=== PATIENT | female | born 1995 | race Caucasian/White ===

== ENCOUNTER 2024-11-05 21:12 | Emergency (ER) | payer OTHER ==
[~2024-11-05] VITALS: Ht 162.6 cm; Wt 83.7 kg
[~2024-11-05 21:12] MED LIST: PREN29CH2 PO
--- NOTE | 2024-11-05 21:26 | ECG ---
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
[2024-11-05 21:34] VITALS: BP 100/66; RESP 20; TEMP 99.6; O2SAT 98
[2024-11-05] MEDS ORDERED: ONDANSETRON HCL 4 MG/2 ML VIAL IV ONE (21:45)
[2024-11-05] MEDS ORDERED: SODIUM CHLORIDE 0.9% 1,000 ML IV ONE ×2 (21:45)
--- NOTE | 2024-11-05 21:45 | ED.PDOC ---
History of Present Illness HPI Comments 29-year-old female, with a history of anxiety, BPD, and PTSD, presents with chief complaint of his body aches, headache whenever coughing, generalized weakness, increased urine frequency, and dark urine production. Endorsement of 4 day history of symptoms. Patient reports on falling a couple times secondary to weakness. Denies any injuries sustained. Denies any further acute symptoms. REVIEW OF SYSTEMS: General: No fever, no chills, or fatigue HEENT: No sore throat, no earache, no congestion, no neck pain. Cardiac: No chest pain. No palpitations. Lungs: No shortness of breath. Cough. GI: No nausea, no vomiting, no diarrhea, no constipation, no abdominal pain : Frequency, dark urine Musculoskeletal: Generalized body aches,, no joint swelling, no extremity edema. Skin: No rash, no itching. Neuro: Generalized weakness, headache, no dizziness PHYSICAL EXAM: General: Awake, alert and oriented. No acute distress. Skin: Skin in warm, dry and intact. Appropriate color for ethnicity. HEENT: The head is normocephalic and atraumatic. Conjunctivae are clear without exudates or hemorrhage. Sclera is non-icteric. EOM are intact. No signs of nystagmus. Eyelids are normal in appearance without swelling or lesions. Oral mucosa is pink and moist Neck: The neck is supple with normal range of motion. No JVD. Cardiac: Heart rate tachycardic and rhythm are normal. No murmurs, gallops, or rubs are auscultated. Respiratory: No signs of respiratory distress. Lung sounds are clear in all lobes bilaterally without rales, rhonchi, or wheezes. Abdominal: Generalized abdominal tenderness. No CVA tenderness. Abdomen is soft, without distention, guarding or rigidity. Bowel sounds are present and normoactive in all four quadrants. Extremities: Upper and lower extremities are atraumatic in appearance without deformity or edema. Neurological: The patient is awake, alert and oriented to person, place, and time with normal speech. Speech is clear. There is no facial asymmetry. Psychiatric: Appropriate mood and affect. Good judgement and insight. Chief Complaint: Chest Pain Time Seen by MD: 21:30 Primary Care Provider: Denies Allergies: Coded Allergies: Vancomycin (Verified Adverse Reaction, Intermediate, 02/10/13) ITCHYNESS, REDDENED SKIN, MILD SOB. 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 Was a procedure done?: No EKG EKG : Pulse Rate (adult): 128 [place]: Normal Cardiac Rhythm: ST Block: None Hypertrophy: None ST: Normal Differential Dx Considerations may include: Differential diagnoses considered include but are not limited to sepsis, CVA, ACS, PE, stroke, ICH, adrenal insufficiency, viral syndrome, thyroid storm, myxedema coma , DKA, HHS, hypoglycemia, anemia, GI bleeding, renal failure, dehydration, hepatic failure, electrolyte imbalance, carbon monoxide poisoning, malignancy, UTI, other. X-Ray, Labs, Meds, VS Vital Signs Date Time Temp Pulse Resp B/P (MAP) Pulse Ox O2 Delivery O2 Flow Rate FiO2 11/06/24 00:11 128 11/05/24 22:54 124 11/05/24 21:34 99.6 138 20 100/66 98 99.6 11/05/24 21:19 128 Lab Test 11/05/24 23:00 11/05/24 21:33 Range/Units White Blood Count 23.3 H 4.4-10.8 10^3/uL Red Blood Count 4.99 4.0-5.20 10^6/uL Hemoglobin 14.0 12.2-16.2 g/dL Hematocrit 40.3 36.0-46.0 % Mean Corpuscular Volume 80.7 80.0-100.0 fL Mean Corpuscular Hemoglobin 28.1 28.0-32.0 pg Mean Corpuscular Hemoglobin Concent 34.8 32.0-36.0 g/dL Red Cell Distribution Width 14.0 11.8-14.3 % Platelet Count 219 140-450 10^3/uL Mean Platelet Volume 8.7 6.9-10.8 fL Neutrophils (%) (Auto) 85.9 H 37.0-80.0 % Lymphocytes (%) (Auto) 5.7 L 10.0-50.0 % Monocytes (%) (Auto) 8.0 0.0-12.0 % Eosinophils (%) (Auto) 0.0 0.0-7.0 % Basophils (%) (Auto) 0.4 0.0-2.0 % Neutrophils # (Auto) 20.0 H 1.6-8.6 10 ^3/uL Lymphocytes # (Auto) 1.3 0.4-5.4 10 ^3/uL Monocytes # (Auto) 1.9 H 0-1.3 10 ^3/uL Eosinophils # (Auto) 0 0-0.8 10 ^3/uL Basophils # (Auto) 0.1 0-0.2 10 ^3/uL Nucleated Red Blood Cells 0.1 % Sodium Level 127 L 136-145 mmol/L Potassium Level 3.6 3.5-5.1 mmol/L Chloride Level 94 L 98-107 mmol/L Carbon Dioxide Level 22 20-31 mmol/L Anion Gap 11 5-15 Blood Urea Nitrogen 11 9-23 mg/dL Creatinine 1.37 H 0.550-1.02 mg/dL Glomerular Filtration Rate Calc 53 >90 mL/min BUN/Creatinine Ratio 8.0 L 10.0-20.0 Serum Glucose 111 H 74-106 mg/dL Lactic Acid Level 2.4 *H 0.4-2.0 mmol/L Calcium Level 8.9 8.7-10.4 mg/dL Total Bilirubin 1.5 H 0.2-1.0 mg/dL Aspartate Amino Transferase (AST) 17 13-40 U/L Alanine Aminotransferase (ALT) 36 7-40 U/L Alkaline Phosphatase 144 H 46-116 U/L Troponin I High Sensitivity < 3 L </=34 ng/L Total Protein 7.2 5.7-8.2 g/dL Albumin 3.9 3.2-4.8 g/dL Urine Color Light-orange Yellow Urine Clarity Ex.turbid Clear Urine pH 6.0 5.0-9.0 Urine Specific [place] 1.020 1.001-1.035 Urine Protein 2+ H Negative Urine Ketones Negative Negative Urine Blood 2+ H Negative /uL Urine Nitrite 2+ H Negative Urine Bilirubin Negative Negative Urine Urobilinogen 3 H Negative mg/dL Urine Leukocyte Esterase 2+ Negative /uL Urine RBC 33 0 - 4 /hpf Urine WBC Clumps Present None Seen /hpf Urine Microscopic WBC 637 H 0-5 /HPF Urine Squamous Epithelial Cells Few <5 /hpf Urine Bacteria Mod H None Seen /hpf Urine Mucus Few None Seen Urine Glucose Normal Normal mg/dL Urine Test Negative Negative Time of 1ST Reevaluation: 22:00 Reevaluation 1ST: Unchanged Patient Education/Counseling: Treatment, Need For Follow Up Family Education/Counseling: No Family Present SEPSIS Sepsis Screen Date sepsis recognized/suspect: Nov 05, 2024 Time Sepsis recognized/suspect: 2136 Recent Procedure: No On Antibiotic Therapy: No Respiratory Rate >20: No Heart Rate >90: No Temp<36 C (96.8 F) or >38.3 C: No SBP <90 or MAP <65 mmHG: No New Acute Mental Status Change: No Is the patient on CPAP, BIPAP,: No Physician Orders Electrocardigram (11/05/24 22:25) Electrocardigram (11/06/24 00:25) Sodium Chloride 0.9% (11/05/24 21:45) Vital Signs Q1HR (11/05/24 21:36) Saline Lock (11/05/24 21:36) Bartenders (11/05/24 ) Rectal/Core Temps Only (11/05/24 21:36) Notify Md If Abnormal Vs (11/05/24 21:36) Blood Culture (11/05/24 21:36) Vital Signs Date Time Temp Pulse Resp B/P (MAP) Pulse Ox O2 Delivery O2 Flow Rate FiO2 11/06/24 00:11 128 11/05/24 22:54 124 11/05/24 21:34 99.6 138 20 100/66 98 99.6 11/05/24 21:19 128 Laboratory Tests Test 11/05/24 23:00 Lactic Acid Level 2.4 mmol/L (0.4-2.0) *H White Blood Count 23.3 10^3/uL (4.4-10.8) H Departure 1 Departure Time of Disposition: 01:43 Impression: Primary Impression: Urinary tract infection Disposition: LEFT AWOL/ELOPED Condition: Guarded Comments MDM: Patient was seen and evaluated in the emergency department She eloped prior to completing treatment Attempted to reach patient by phone to update with her results and recommend return to the emergency department. Phone number listed on chart not in service Extensive evaluation was performed in attempt to identify or rule out: (See differential diagnosis section) The following tests were ordered, and results were reviewed by me and discussed with patient: (See diagnostic results section) The following test were independently interpreted by me: N/A I reviewed and agreed with the following test results read by other providers: Chest x-ray I reviewed the following notes from the pt's past medical encounters: N/A Additional information was gathered from interviewing the following independent historians: N/A Discussion of management or test interpretation with external physician/other qualified health care administrative tech: N/A An acute or chronic illness that poses a threat to life or bodily function: Urinary tract infection Decision regarding hospitalization or escalation of hospital level of care: Risk and benefits of admission for further treatment of patient's condition was considered. Due to patient's current clinical condition, high risk of decline and poor outcome if discharged and need for further inpatient management and monitoring, patient will be admitted to the hospital. Critical Care Note Critical Care Time?: No Stability Stability form required: No Heart Score Heart Score: Heart Score Response (Comments) Value History N/A 0 EKG N/A 0 Age N/A 0 Risk Factors N/A 0 Troponin N/A 0 Total 0 I personally scribed for YURY MORRIS MD ([email or web address]) on 11/05/24 at 21:45. Electronically submitted by Micah Shaffer ([email or web address]). I personally scribed for YURY MORRIS MD ([email or web address]) on 11/06/24 at 00:11. E lectronically submitted by Micah Shaffer ([email or web address]). I personally scribed for YURY MORRIS MD ([email or web address]) on 11/06/24 at 01:17. Electronically submitted by Micah Shaffer ([email or web address]). YURY MORRIS MD Nov 05, 2024 21:45
[2024-11-05 23:31] LABS: Hematocrit 40.3 % (36.0-46.0); Hemoglobin 14.0 g/dL (12.2-16.2); Mean Corpuscular Hemoglobin 28.1 pg (28.0-32.0); Mean Corpuscular Volume 80.7 fL (80.0-100.0); Nucleated Red Blood Cells % 0.1 %
[2024-11-05 23:56] LABS: Urine Protein, UAD 2+ (Negative); Urine WBC Clumps PRESENT /hpf (None Seen)
[2024-11-06 00:03] LABS: Alanine Aminotransferase 36 U/L (7-40); Albumin 3.9 g/dL (3.2-4.8); Alkaline Phosphatase 144 U/L (46-116); Anion Gap 11 (5-15); BUN/Creatinine Ratio 8.0 (10.0-20.0); Bilirubin, Total 1.5 mg/dL (0.2-1.0); Blood Urea Nitrogen 11 mg/dL (9-23); Calcium 8.9 mg/dL (8.7-10.4); Carbon Dioxide 22 mmol/L (20-31); Chloride 94 mmol/L (98-107); Glucose 111 mg/dL (74-106); Potassium 3.6 mmol/L (3.5-5.1); Sodium 127 mmol/L (136-145); Total Protein 7.2 g/dL (5.7-8.2)
[2024-11-06 00:11] VITALS: PULSE 128
[2024-11-06 00:12] LABS: Lactic Acid w/Reflex 2.4 mmol/L (0.4-2.0)
--- NOTE | 2024-11-06 08:21 | ECG ---
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
--- NOTE | 2024-11-07 06:35 | ECG ---
[facility] Test Date: 2024-11-06 Test Time: 19:52:28 Pat Name: TRISTA LO Department: Room: Gender: F Sap Trainer: ANDREA : 1995 Requested By: EMERGENCY EMERGENCY Order Number: [id number] Reading MD: Jesús Vo Measurements Intervals [place] Rate: 98 P: 18 WV: 153 QRS: 0 QRSD: 104 T: 48 QT: 349 QTc: 446 Interpretive Statements Sinus rhythm Electronically Signed On 11-08-2024 9:56:57 PDT by Jesús Vo Please click the below link to view image of tracing.
== END 2024-11-06 00:46 | disposition left against medical advice (07) ==
LOC: ER 21:18
DX: N39.0 Urinary tract infection, site not specified (principal); F17.210 Nicotine dependence, cigarettes, uncomplicated; Z90.49 Acquired absence of other specified parts of digestive tract; Z79.899 Other long term (current) drug therapy; Z88.1 Allergy status to other antibiotic agents
CPT/HCPCS: 36415; 80053; 81001; 81025; 83605; 84484; 85025; 87040; 87077; 87186; 93005

== ENCOUNTER 2024-11-06 15:21 | Inpatient (IN) | payer SELFPAY ==
[~2024-11-06] VITALS: Ht 162.6 cm; Wt 89.0 kg
--- NOTE | 2024-11-06 16:39 | DVH ---
CLINICAL HISTORY: Bilateral flank pain TECHNIQUE: CT of the abdomen and pelvis was performed without IV contrast. This exam was performed ac cording to our departmental dose optimization program. Up-to-date CT equipment and radiation dose red uction techniques are utilized as appropriate. CTDI 11.7 DLP 613 COMPARISON: None FINDINGS: Abdomen/Pelvis: The spleen, pancreas, adrenal glands, and uterus appear grossly unremarkable. The gallbladder is absent. There is diffuse hepatic steatosis. There is extensive right perinephric inflammation. There is minimal left perinephric inflammation. No stone or hydronephrosis seen. The bladder is not well distended and therefore not well evaluated. The uterus is absent. The abdominal aorta is normal in course and caliber. There are no significant atherosclerotic calcifi cations. There is no free intraperitoneal air or fluid. There is no enlarged abdominal pelvic lymph node. There is no bowel wall thickening or dilatation. The appendix is not seen with certainty. There is no focal inflammatory process and suspected location. Other: The imaged lower thorax is unremarkable. No acute osseous abnormality is evident. There is grade 1 L5-S1 spondylolysis. Impression: Extensive right and minimal left perinephric inflammation with no stone or hydroureteronephrosis. Ple ase correlate with urine analysis and laboratory values for pyonephritis. Other possibilities are not excluded on a noncontrast CT exam. Diffuse hepatic steatosis. Cholecystectomy.
[2024-11-06 16:52] LABS: Urine Budding Yeast FEW /hpf (None Seen); Urine Protein, UAD 2+ (Negative); Urine WBC Clumps PRESENT /hpf (None Seen)
--- NOTE | 2024-11-06 17:06 | ED.PDOC ---
General HPI Comments 29y F who presents to the ED for chief complaint of L left greater than right- sided flank pain. Pt was seen here yesterday and for same complaint and had blood work and UA. Pt was noted be have UTI and antibiotics were ordered but pt states to due long wait time and her history of anxiety, she left prior to treatment. Pt states she now came back to the ED due to severe 10/ 10 bilateral sided flank pain and generalized weakness, nausea, vomiting, dysuria and fever. Pt in the ED, noted to have temp of 100.3 with otherwise stable vitals including heart rate 84, rr 16, BP of 103/73 and 02 sat of 96% on room air. Pt otherwise denies any other symptoms at this time. Of note, patient had 1 episode of brief loss of consciousness while sitting in the phlebotomy chair having her blood drawn. She immediately regained consciousness spontaneously and was at her normal neurologic baseline. She states she became very anxious and may have pas sed out. Chief Complaint: Flank Pain Time Seen by MD: 17:05 Primary Care Provider: Denies Reviewed notes: Medications, Allergies Allergies: Coded Allergies: Naproxen (Verified Allergy, Unknown, 11/06/24) Sumatriptan (Verified Allergy, Unknown, 11/06/24) Vancomycin (Verified Adverse Reaction, Intermediate, 02/10/13) ITCHYNESS, REDDENED SKIN, MILD SOB. 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 Dry mucous membranes.) Neck: Full Range of Motion, Normal Inspection Respiratory: Lungs Clear, No Accessory Muscle Use, No Respiratory Distress, Normal Breath Sounds Cardiovascular: No Edema, No JVD, Tachycardia Breast Exam: Deferred Gastrointestinal: Soft, Tenderness (Bilateral flank and CVA tenderness) Genitalia: Deferred Pelvic: Deferred Rectal: Deferred Extremities: Normal inspection, Normal range of motion, Non-tender, No pedal edema Neurologic: Alert (Oriented x4), Normal Affect, Other (Anxious, ambulatory) Cerebellar Function: NOT DONE Reflexes: NOT DONE Skin: NOT DONE Lymphatic: NOT DONE Was a procedure done? Was a procedure done?: No Differential Diagnosis Kidney stone (Female): Musculoskeletal pain, Pyelonephritis, Renal failure, Strain, Urinary obstruction, Urolithiasis, Other (Dehydration, electrolyte imbalance,) Urinary Problem (Female): Pyelonephritis, Urinary retention, UTI X-Ray, Labs, Meds, VS Vital Signs Date Time Temp Pulse Resp B/P (MAP) Pulse Ox O2 Delivery O2 Flow Rate FiO2 11/06/24 20:00 97 11/06/24 19:30 104 16 99/61 11/06/24 18:59 115 12 97/62 11/06/24 18:51 100.7 113 15 93/56 (68) 95 100.7 11/06/24 18:51 113 15 95 Room Air* 0 21 11/06/24 18:31 101.3 11/06/24 15:23 100.3 84 16 103/73 96 100.3 Lab Test 11/06/24 16:51 11/06/24 16:39 Range/Units White Blood Count 18.3 H 4.4-10.8 10^3/uL Red Blood Count 4.95 4.0-5.20 10^6/uL Hemoglobin 13.7 12.2-16.2 g/dL Hematocrit 41.1 36.0-46.0 % Mean Corpuscular Volume 83.1 80.0-100.0 fL Mean Corpuscular Hemoglobin 27.7 L 28.0-32.0 pg Mean Corpuscular Hemoglobin Concent 33.4 32.0-36.0 g/dL Red Cell Distribution Width 14.6 H 11.8-14.3 % Platelet Count 391 140-450 10^3/uL Mean Platelet Volume 8.9 6.9-10.8 fL Neutrophils (%) (Auto) 81.5 H 37.0-80.0 % Lymphocytes (%) (Auto) 7.1 L 10.0-50.0 % Monocytes (%) (Auto) 11.1 0.0-12.0 % Eosinophils (%) (Auto) 0.1 0.0-7.0 % Basophils (%) (Auto) 0.2 0.0-2.0 % Neutrophils # (Auto) 14.9 H 1.6-8.6 10 ^3/uL Lymphocytes # (Auto) 1.3 0.4-5.4 10 ^3/uL Monocytes # (Auto) 2.0 H 0-1.3 10 ^3/uL Eosinophils # (Auto) 0 0-0.8 10 ^3/uL Basophils # (Auto) 0 0-0.2 10 ^3/uL Nucleated Red Blood Cells 0.1 % Sodium Level 126 L 136-145 mmol/L Potassium Level 3.3 L 3.5-5.1 mmol/L Chloride Level 94 L 98-107 mmol/L Carbon Dioxide Level 21 20-31 mmol/L Anion Gap 11 5-15 Blood Urea Nitrogen 11 9-23 mg/dL Creatinine 1.36 H 0.550-1.02 mg/dL Glomerular Filtration Rate Calc 53 >90 mL/min BUN/Creatinine Ratio 8.1 L 10.0-20.0 Serum Glucose 112 H 74-106 mg/dL Lactic Acid Level 1.6 0.4-2.0 mmol/L Calcium Level 8.6 L 8.7-10.4 mg/dL Total Bilirubin 1.1 H 0.2-1.0 mg/dL Aspartate Amino Transferase (AST) 17 13-40 U/L Alanine Aminotransferase (ALT) 29 7-40 U/L Alkaline Phosphatase 127 H 46-116 U/L Total Protein 7.1 5.7-8.2 g/dL Albumin 3.9 3.2-4.8 g/dL Urine Color Light-orange Yellow Urine Clarity Ex.turbid Clear Urine pH 6.0 5.0-9.0 Urine Specific [place] 1.019 1.001-1.035 Urine Protein 2+ H Negative Urine Ketones Negative Negative Urine Blood 2+ H Negative /uL Urine Nitrite 1+ H Negative Urine Bilirubin Negative Negative Urine Urobilinogen 2 H Negative mg/dL Urine Leukocyte Esterase 3+ Negative /uL Urine RBC 13 0 - 4 /hpf Urine WBC Clumps Present None Seen /hpf Urine Microscopic WBC 807 H 0-5 /HPF Urine Squamous Epithelial Cells Few <5 /hpf Urine Bacteria Few H None Seen /hpf Urine Yeast (Budding) Few None Seen /hpf Urine Glucose Normal Normal mg/dL Current Medications Medications (Trade) Dose Ordered Sig/Shannon Route Start Time Stop Time Status Last Admin Acetaminophen (Tylenol Tablet) 650 mg ONCE ONCE PO 11/06/24 15:45 11/06/24 15:46 DC 11/06/24 18:31 Sodium Chloride 1,650 ml @ 1,650 mls/hr ONCE ONCE IV 11/06/24 15:45 11/06/24 16:44 DC 11/06/24 18:54 Ceftriaxone Sodium/Dextrose 50 ml @ 50 mls/hr ONCE ONCE IV 11/06/24 15:45 11/06/24 16:44 DC 11/06/24 18:58 Morphine Sulfate 4 mg ONCE ONCE IV 11/06/24 15:45 11/06/24 15:46 DC 11/06/24 18:59 Ondansetron HCl (Zofran) 4 mg ONCE ONCE IV 11/06/24 15:45 11/06/24 15:46 DC 11/06/24 18:59 [place] [id number] Ph: [phone] DIAGNOSTIC IMAGING Diagnostic Imaging Report : [id number] Signed PATIENT: TRISTA LO ACCT: [id number] UNIT: [id number] : 1995 LOC: ER ROOM / BED: / AGE / SEX: 29 / F ADM STATUS: REG ER SERVICE 1541 ORDERING PHYSICIAN: BELA CROCKER MD PROCEDURE(s): ABPL - CT AB PEL WO CON-NO ORAL OR IV REASON: Bilateral flank pain ORDER NUMBER(s): [id number], ACCESSION NUMBER(s): [id number] CLINICAL HISTORY: Bilateral flank pain TECHNIQUE: CT of the abdomen and pelvis was performed without IV contrast. This exam was performed according to our departmental dose optimization program. Up-to-date CT equipment and radiation dose reduction techniques are utilized as appropriate. CTDI 11.7 DLP 613 COMPARISON: None FINDINGS: Abdomen/Pelvis: The spleen, pancreas, adrenal glands, and uterus appear grossly unremarkable. The gallbladder is absent. There is diffuse hepatic steatosis. There is extensive right perinephric inflammation. There is minimal left per inephric inflammation. No stone or hydronephrosis seen. The bladder is not well distended and therefore not well evaluated. The uterus is absent. The abdominal aorta is normal in course and caliber. There are no significant atherosclerotic calcifications. There is no free intraperitoneal air or fluid. There is no enlarged abdominal pelvic lymph node. There is no bowel wall thickening or dilatation. The appendix is not seen with certainty. There is no focal inflammatory process and suspected location. Other: The imaged lower thorax is unremarkable. No acute osseous abnormality is evident. There is grade 1 L5-S1 spondylolysis. Impression: Extensive right and minimal left perinephric inflammation with no stone or hydroureteronephrosis. Please correlate with urine analysis and laboratory values for pyonephritis. Other possibilities are not excluded on a noncontrast CT exam. Diffuse hepatic steatosis. Cholecystectomy. ATED BY: DWIGHT TOLEDO MD DICTATED DATE/TIME: 11/06/24 1637 SIGNED BY: DWIGHT TOLEDO MD SIGNED DATE/TIME: 11/06/24 1637 CC: X-Ray, Labs, Meds, VS Comment 29-year-old female with a history of anxiety, bipolar disorder, PTSD and kidney stones complaining of persistent bilateral flank pain. Patient left prior to treatment yesterday after being diagnosed with a UTI. Vitals remarkable for temperature 101.3, heart rate 113 Exam remarkable for bilateral CVA tenderness CT abdomen and pelvis shows bilateral perinephric stranding suspicious for pyelonephritis CBC remarkable for WBC 18.3, metabolic panel remarkable for sodium 126, potassium 3.3, chloride 94, creatinine 1.36, lactate 1.6, UA abnormal consistent with UTI Patient treated with the following in the ED: 30 cc/kilogram normal saline IV bolus, Rocephin 2 g IV, morphine 4 mg IV, Zofran 4 mg IV, Tylenol 650 mg p.o. On re-evaluation, patient states pain has improved. Vitals were stable. She is afebrile. Plan is to admit the patient for IV antibiotics, electrolyte correction and nephrology consultation. Time of 1ST Reevaluation: 20:34 Reevaluation 1ST: Improved Patient Education/Counseling: Diagnosis, Treatment Family Education/Counseling: No Family Present SEPSIS Sepsis Screen Date sepsis recognized/suspect: Nov 06, 2024 Time Sepsis recognized/suspect: 1523 Recent Procedure: No On Antibiotic Therapy: No Respiratory Rate >20: No Heart Rate >90: No Temp<36 C (96.8 F) or >38.3 C: No SBP <90 or MAP <65 mmHG: No New Acute Mental Status Change: No Is the patient on CPAP, BIPAP,: No Physician Orders Blood Culture (11/06/24 15:41) Ct Ab Pel Wo Con-No Oral Or Iv (11/06/24 15:41) Vital Signs Date Time Temp Pulse Resp B/P (MAP) Pulse Ox O2 Delivery O2 Flow Rate FiO2 11/06/24 20:00 97 11/06/24 19:30 104 16 99/61 11/06/24 18:59 115 12 97/62 11/06/24 18:51 100.7 113 15 93/56 (68) 95 100.7 11/06/24 18:51 113 15 95 Room Air* 0 21 11/06/24 18:31 101.3 11/06/24 15:23 100.3 84 16 103/73 96 100.3 Laboratory Tests Test 11/06/24 16:51 Lactic Acid Level 1.6 mmol/L (0.4-2.0) White Blood Count 18.3 10^3/uL (4.4-10.8) H Medications Medications Dose Ordered Sig/Shannon Route Start Time Stop Time Status Last Admin Dose Admin Acetaminophen 650 mg ONCE ONCE PO 11/06/24 15:45 11/06/24 15:46 DC 11/06/24 18:31 Ceftriaxone Sodium/Dextrose 50 ml @ 50 mls/hr ONCE ONCE IV 11/06/24 15:45 11/06/24 16:44 DC 11/06/24 18:58 Morphine Sulfate 4 mg ONCE ONCE IV 11/06/24 15:45 11/06/24 15:46 DC 11/06/24 18:59 Ondansetron HCl 4 mg ONCE ONCE IV 11/06/24 15:45 11/06/24 15:46 DC 11/06/24 18:59 Sodium Chloride 1,650 ml @ 1,650 mls/hr ONCE ONCE IV 11/06/24 15:45 11/06/24 16:44 DC 11/06/24 18:54 Departure 1 Departure Time of Disposition: 20:34 Impression: Primary Impression: Pyelonephritis Additional Impressions: Electrolyte imbalance Acute kidney injury Disposition: 09 ADMITTED INPATIENT Admit to: Med Surg Condition: Guarded Critical Care Note Critical Care Time?: No Stability Stability form required: No Heart Score Heart Score: Heart Score Response (Comments) Value History N/A 0 EKG N/A 0 Age N/A 0 Risk Factors N/A 0 Troponin N/A 0 Total 0 I personally scribed for BELA CROCKER MD ([email or web address]) on 11/06/24 at 17:06. Electronically submitted by Kiel Silva ([facility]). BELA CROCKER MD Nov 06, 2024 17:06
[2024-11-06 17:15] LABS: Hematocrit 41.1 % (36.0-46.0); Hemoglobin 13.7 g/dL (12.2-16.2); Mean Corpuscular Hemoglobin 27.7 pg (28.0-32.0); Mean Corpuscular Volume 83.1 fL (80.0-100.0); Nucleated Red Blood Cells % 0.1 %
[2024-11-06 17:37] LABS: Alanine Aminotransferase 29 U/L (7-40); Albumin 3.9 g/dL (3.2-4.8); Anion Gap 11 (5-15); BUN/Creatinine Ratio 8.1 (10.0-20.0); Blood Urea Nitrogen 11 mg/dL (9-23); Carbon Dioxide 21 mmol/L (20-31); Total Protein 7.1 g/dL (5.7-8.2)
[2024-11-06 17:38] LABS: Bilirubin, Total 1.1 mg/dL (0.2-1.0)
[2024-11-06 17:39] LABS: Alkaline Phosphatase 127 U/L (46-116); Calcium 8.6 mg/dL (8.7-10.4); Chloride 94 mmol/L (98-107); Glucose 112 mg/dL (74-106); Potassium 3.3 mmol/L (3.5-5.1); Sodium 126 mmol/L (136-145)
[2024-11-06] MEDS: ACETAMINOPHEN 325 MG TAB PO ONE (18:31)
[2024-11-06 18:51] VITALS: PULSE 113; RESP 15; O2SAT 95
[2024-11-06] MEDS: SODIUM CHLORIDE 0.9% 1,650 ML IV ONE (18:54)
[2024-11-06] MEDS: ONDANSETRON HCL 4 MG/2 ML VIAL IV ONE (18:59)
[2024-11-06] MEDS: MORPHINE SULFATE 4 MG/ML SYR/VIAL IV ONE (18:59)
[2024-11-06 21:39] VITALS: PULSE 111; RESP 16; O2SAT 96
--- NOTE | 2024-11-06 22:12 | DVHHPRES ---
History of Present Illness Resident Creating Document: TIO SAMPSON RESIDENT History of Present Illness 29-year-old female with past medical history of kidney stones, depression and past surgical history of appendectomy presented with complaints of flank pain left greater than right. Pt was seen here yesterday and for same complaint and had blood work and UA. Pt was noted be have UTI and antibiotics were ordered but pt states to due long wait time and her history of anxiety, she left prior to treatment. Pt states she now came back to the ED due to severe 10/ 10 bilateral sided flank pain and generalized weakness, nausea, vomiting, dysuria and fever. Patient seen and examined at bedside. Mentioned complaints of back pain, still has fever Past medical history Kidney stones Depression Past surgical history Appendectomy Family History Family History: No family hx of DM, No family hx of Heart jojo Social History Smoker: Cigarettes, Other Alcohol: Occasionally Drugs: Marijuana, Other Lives In: Home Review of Systems Review of Systems As described in the HPI Allergies: Coded Allergies: Naproxen (Verified Allergy, Unknown, 11/06/24) Sumatriptan (Verified Allergy, Unknown, 11/06/24) Vancomycin (Verified Adverse Reaction, Intermediate, 02/10/13) ITCHYNESS, REDDENED SKIN, MILD SOB. Exam Vital Signs Vital Signs Date Time Temp Pulse Resp B/P (MAP) Pulse Ox O2 Delivery O2 Flow Rate FiO2 11/06/24 21:39 111 16 96 Room Air* 0 21 11/06/24 21:00 98.3 106/62 (77) 98.3 Exam Examination General Appearance: Alert, Oriented X3, Cooperative, No acute distress HEENT: EOMI Respiratory: Clear to auscultation, Normal air movement Cardiovascular: Regular rate, Normal S1, Normal S2 Abdominal: Soft, Tenderness (Bilateral flank and CVA tenderness), Normal bowel sounds Extremities: No cyanosis, No edema, Normal pulses, No tenderness/swelling Skin: No rashes, No breakdown Neuro: Normal speech and tone Labs/Xrays Labs Test 11/06/24 16:51 11/06/24 16:39 Range/Units White Blood Count 18.3 H 4.4-10.8 10^3/uL Red Blood Count 4.95 4.0-5.20 10^6/uL Hemoglobin 13.7 12.2-16.2 g/dL Hematocrit 41.1 36.0-46.0 % Mean Corpuscular Volume 83.1 80.0-100.0 fL Mean Corpuscular Hemoglobin 27.7 L 28.0-32.0 pg Mean Corpuscular Hemoglobin Concent 33.4 32.0-36.0 g/dL Red Cell Distribution Width 14.6 H 11.8-14.3 % Platelet Count 391 140-450 10^3/uL Mean Platelet Volume 8.9 6.9-10.8 fL Neutrophils (%) (Auto) 81.5 H 37.0-80.0 % Lymphocytes (%) (Auto) 7.1 L 10.0-50.0 % Monocytes (%) (Auto) 11.1 0.0-12.0 % Eosinophils (%) (Auto) 0.1 0.0-7.0 % Basophils (%) (Auto) 0.2 0.0-2.0 % Neutrophils # (Auto) 14.9 H 1.6-8.6 10 ^3/uL Lymphocytes # (Auto) 1.3 0.4-5.4 10 ^3/uL Monocytes # (Auto) 2.0 H 0-1.3 10 ^3/uL Eosinophils # (Auto) 0 0-0.8 10 ^3/uL Basophils # (Auto) 0 0-0.2 10 ^3/uL Nucleated Red Blood Cells 0.1 % Sodium Level 126 L 136-145 mmol/L Potassium Level 3.3 L 3.5-5.1 mmol/L Chloride Level 94 L 98-107 mmol/L Carbon Dioxide Level 21 20-31 mmol/L Anion Gap 11 5-15 Blood Urea Nitrogen 11 9-23 mg/dL Creatinine 1.36 H 0.550-1.02 mg/dL Glomerular Filtration Rate Calc 53 >90 mL/min BUN/Creatinine Ratio 8.1 L 10.0-20.0 Serum Glucose 112 H 74-106 mg/dL Lactic Acid Level 1.6 0.4-2.0 mmol/L Calcium Level 8.6 L 8.7-10.4 mg/dL Total Bilirubin 1.1 H 0.2-1.0 mg/dL Aspartate Amino Transferase (AST) 17 13-40 U/L Alanine Aminotransferase (ALT) 29 7-40 U/L Alkaline Phosphatase 127 H 46-116 U/L Total Protein 7.1 5.7-8.2 g/dL Albumin 3.9 3.2-4.8 g/dL Urine Color Light-orange Yellow Urine Clarity Ex.turbid Clear Urine pH 6.0 5.0-9.0 Urine Specific [place] 1.019 1.001-1.035 Urine Protein 2+ H Negative Urine Ketones Negative Negative Urine Blood 2+ H Negative /uL Urine Nitrite 1+ H Negative Urine Bilirubin Negative Negative Urine Urobilinogen 2 H Negative mg/dL Urine Leukocyte Esterase 3+ Negative /uL Urine RBC 13 0 - 4 /hpf Urine WBC Clumps Present None Seen /hpf Urine Microscopic WBC 807 H 0-5 /HPF Urine Squamous Epithelial Cells Few <5 /hpf Urine Bacteria Few H None Seen /hpf Urine Yeast (Budding) Few None Seen /hpf Urine Glucose Normal Normal mg/dL SEPSIS Sepsis Screen Date sepsis recognized/suspect: Nov 06, 2024 Time Sepsis recognized/suspect: 1850 Recent Procedure: No On Antibiotic Therapy: No Respiratory Rate >20: No Heart Rate >90: Yes Temp<36 C (96.8 F) or >38.3 C: No SBP <90 or MAP <65 mmHG: No New Acute Mental Status Change: No Is the patient on CPAP, BIPAP,: No Physician Orders Blood Culture (11/06/24 15:41) Ct Ab Pel Wo Con-No Oral Or Iv (11/06/24:41) Admit (11/06/24 22:08) Oxygen By Nasal Cannula (11/06/24 22:08) Stat Ekg For Chest Pain (11/06/24 22:08) Notify Md Of Changes From Base (11/06/24 22:08) Agile Scrum Coach For 24 Hours (11/06/24 22:08) Emergency Dysrhythmia Protocol (11/06/24 22:08) Rhythm Strips Once Every Shift (11/06/24 22:08) NS (11/06/24 22:15) Urine Bacterial Culture (11/06/24 22:08) Blood Culture (11/06/24 22:08) Lactic Acid W/ Reflex Order (11/06/24 22:08) Mrsa Screen (11/06/24 22:08) Zosyn Extended Infusion (11/07/24 00:00) Zosyn Extended Infusion (11/07/24 06:00) Potassium Chl Luis Kcl (11/06/24 22:15) Vital Signs Date Time Temp Pulse Resp B/P (MAP) Pulse Ox O2 Delivery O2 Flow Rate FiO2 11/06/24 21:39 111 16 96 Room Air* 0 21 11/06/24 21:00 98.3 91 22 106/62 (77) 94 98.3 11/06/24 20:00 97 11/06/24 19:30 104 16 99/61 11/06/24 18:59 115 12 97/62 11/06/24 18:51 100.7 113 15 93/56 (68) 95 100.7 11/06/24 18:51 113 15 95 Room Air* 0 21 11/06/24 18:31 101.3 11/06/24 15:23 100.3 84 16 103/73 96 100.3 Laboratory Tests Test 11/06/24 16:51 Lactic Acid Level 1.6 mmol/L (0.4-2.0) White Blood Count 18.3 10^3/uL (4.4-10.8) H Medications Medications Dose Ordered Sig/Shannon Route Start Time Stop Time Status Last Admin Dose Admin Acetaminophen 650 mg ONCE ONCE PO 11/06/24 15:45 11/06/24 15:46 DC 11/06/24 18:31 650 MG Ceftriaxone Sodium/Dextrose 50 ml @ 50 mls/hr ONCE ONCE IV 11/06/24 15:45 11/06/24 16:44 DC 11/06/24 18:58 50 MLS/HR Morphine Sulfate 4 mg ONCE ONCE IV 11/06/24 15:45 11/06/24 15:46 DC 11/06/24 18:59 4 MG Ondansetron HCl 4 mg ONCE ONCE IV 11/06/24 15:45 11/06/24 15:46 DC 11/06/24 18:59 4 MG Sodium Chloride 1,650 ml @ 1,650 mls/hr ONCE ONCE IV 11/06/24 15:45 11/06/24 16:44 DC 11/06/24 18:54 1,650 MLS/HR Assessment/Plan Assessment/Plan Assessment/plan # sepsis due to pyelonephritis IV fluid Antibiotics Blood culture Lactic acid # pyelonephritis IV fluid Antibiotics Blood culture Lactic acid CT shows Extensive right and minimal left perinephric inflammation with no stone or hydroureteronephrosis. Please correlate with urine analysis and laboratory values for pyonephritis. Other possibilities are not excluded on a noncontrast CT exam. # PEMA due to VMN IV fluids Monitor #Diffuse hepatic steatosis Seen on CT Monitor with LFTs #hypokalemia -Oral potassium effervescent -Monitor BMP # hyponatremia likely due to hypovolemia due to sepsis Monitor # history of kidney stones # status post Cholecystectomy. Code status, full code Case discussed with Dr. Batres Plan discussed with: Patient, Other My Orders Orders - TIO SAMPSON RESIDENT Procedure Category Date Status Time Admit ADMIT 11/06/24 Verified 22:08 Oxygen By Nasal RT 11/06/24 Verified Cannula 22:08 Stat Ekg For Chest [facility] 11/06/24 Verified Pain 22:08 Notify Md Of Changes [facility] 11/06/24 Verified From Base 22:08 Agile Scrum Coach For [facility] 11/06/24 Verified 24 Hours 22:08 Emergency Dysrhythmia [facility] 11/06/24 Verified Protocol 22:08 Rhythm Strips Once [facility] 11/06/24 Verified Every Shift 22:08 NS PHA 11/06/24 Verified 22:15 Urine Bacterial BRENDA 11/06/24 Verified Culture 22:08 Blood Culture BRENDA 11/06/24 Verified 22:08 Lactic Acid W/ Reflex LAB 11/06/24 Verified Order 22:08 Mrsa Screen BRENDA 11/06/24 Verified 22:08 Zosyn Extended PHA 11/07/24 Verified Infusion 00:00 Zosyn Extended PHA 11/07/24 Verified Infusion 06:00 Potassium Chl Luis PHA 11/06/24 Verified KCL 22:15 Date of Service: Nov 06, 2024 Billing Provider: IRIS BATRES MD Common Visit Codes: [id number] INP/OBS CARE (HIGH) TIO SAMPSON RESIDENT Nov 06, 2024 22:12 IRIS BATRES MD Nov 09, 2024 13:29
[2024-11-06] MEDS: POTASSIUM CHL 20MEQ/100ML 100 ML IV ONE (22:55)
[2024-11-06] MEDS: SODIUM CHLORIDE 0.9% 500 ML IV ONE (22:55)
[2024-11-06 23:11] LABS: Hematocrit 35.4 % (36.0-46.0); Hemoglobin 12.0 g/dL (12.2-16.2); Mean Corpuscular Hemoglobin 28.0 pg (28.0-32.0); Mean Corpuscular Volume 82.3 fL (80.0-100.0); Nucleated Red Blood Cells % 0.0 %
[2024-11-06 23:20] LABS: Alanine Aminotransferase 22 U/L (7-40); Albumin 3.5 g/dL (3.2-4.8); Alkaline Phosphatase 111 U/L (46-116); Anion Gap 10 (5-15); BUN/Creatinine Ratio 8.2 (10.0-20.0); Bilirubin, Total 0.8 mg/dL (0.2-1.0); Blood Urea Nitrogen 9 mg/dL (9-23); Carbon Dioxide 20 mmol/L (20-31); Chloride 100 mmol/L (98-107); Magnesium 2.0 mg/dL (1.6-2.6); Total Protein 6.4 g/dL (5.7-8.2)
[2024-11-06 23:25] LABS: Calcium 8.2 mg/dL (8.7-10.4); Glucose 120 mg/dL (74-106); Potassium 3.2 mmol/L (3.5-5.1); Sodium 130 mmol/L (136-145)
[2024-11-07] MEDS ORDERED: PIPERACILLIN-TAZO 4.5GM 100 ML IV SCH
[2024-11-07] MEDS: PIPERACILLIN-TAZOB 3.375GM 100 ML IV SCH (00:45)
[2024-11-07] MEDS: ACETAMINOPHEN 325 MG TAB PO ONE (04:02)
[2024-11-07] MEDS: ONDANSETRON HCL 4 MG/2 ML VIAL IV ONE (04:16)
[2024-11-07] MEDS: MORPHINE SULFATE INJ 2 MG/ml SYRG IV ONE ×2 (04:16→05:43)
[2024-11-07 10:24] LABS: Hematocrit 36.2 % (36.0-46.0); Hemoglobin 12.2 g/dL (12.2-16.2); Mean Corpuscular Hemoglobin 27.6 pg (28.0-32.0); Mean Corpuscular Volume 82.0 fL (80.0-100.0); Nucleated Red Blood Cells % 0.0 %
[2024-11-07] MEDS: POTASSIUM EFFERVESENT TAB 25 MEQ PO ONE (10:43)
[2024-11-07 10:45] LABS: Alanine Aminotransferase 19 U/L (7-40); Albumin 3.4 g/dL (3.2-4.8); Alkaline Phosphatase 106 U/L (46-116); Anion Gap 8 (5-15); BUN/Creatinine Ratio 9.2 (10.0-20.0); Bilirubin, Total 0.8 mg/dL (0.2-1.0); Blood Urea Nitrogen 10 mg/dL (9-23); Carbon Dioxide 23 mmol/L (20-31); Chloride 99 mmol/L (98-107); Magnesium 1.8 mg/dL (1.6-2.6); Total Protein 6.2 g/dL (5.7-8.2)
[2024-11-07 10:52] LABS: Calcium 8.3 mg/dL (8.7-10.4); Glucose 132 mg/dL (74-106); Potassium 3.4 mmol/L (3.5-5.1); Sodium 130 mmol/L (136-145)
[2024-11-07 12:45] VITALS: PULSE 108; RESP 18; O2SAT 99
[2024-11-07] MEDS: LACTATED RINGER'S 1,000 ML IV SCH (13:30)
[2024-11-07] MEDS: HYDROcodone-ACET 5/325MG TAB PO PRN (14:32)
--- NOTE | 2024-11-07 15:58 | DVHPN2 ---
Reviewed: H&P Changes from previous H/P or p: No Changes General: Per HPI Objective Vitals Vital Signs Date Time Temp Pulse Resp B/P (MAP) Pulse Ox O2 Delivery O2 Flow Rate FiO2 11/07/24 14:38 110 17 102/50 (67) 100 11/07/24 12:45 100.0 100.0 11/07/24 12:45 Room Air* 0 21 Intake/Output Intake and Output 11/07/24 07:00 Intake Total 50 ml Balance 50 ml Intake IV Total 50 ml Exam General Appearance: Alert, Oriented X3, Cooperative, No acute distress HEENT: EOMI Respiratory: Clear to auscultation, Normal air movement Cardiovascular: Regular rate, Normal S1, Normal S2 Abdominal: Soft, Tenderness (Bilateral flank and CVA tenderness), Normal bowel sounds Extremities: No cyanosis, No edema, Normal pulses, No tenderness/swelling Skin: No rashes, No breakdown Neuro: Normal speech and tone Medications Current Medications Medications Dose Ordered Sig/Shannon Route Start Time Stop Time Status Last Admin Dose Admin Piperacillin Sod/ Tazobactam Sod 100 ml @ 25 mls/hr Q6HR IV 11/07/24 00:00 UNV Piperacillin Sod/ Tazobactam Sod 100 ml @ 25 mls/hr Q8HR IV 11/06/24 22:17 11/07/24 14:28 25 MLS/HR Acetaminophen 650 mg Q6HP PRN PO 11/07/24 13:30 Acetaminophen/ Hydrocodone Bitart 1 tab Q6HPRN PRN PO 11/07/24 13:30 11/07/24 14:32 1 TAB Morphine Sulfate 2 mg Q6HPRN PRN IV 11/07/24 13:30 Lactated Ringer's 1,000 ml @ 75 mls/hr [id number] IV 11/07/24 13:30 11/07/24 13:30 75 MLS/HR Laboratory Results Laboratory Tests 11/07/24 10:07 Chemistry Test 11/06/24 16:51 11/06/24 22:32 11/07/24 10:07 Albumin 3.9 g/dL (3.2-4.8) 3.5 g/dL (3.2-4.8) 3.4 g/dL (3.2-4.8) Calcium Level 8.6 mg/dL (8.7-10.4) L 8.2 mg/dL (8.7-10.4) L 8.3 mg/dL (8.7-10.4) L Total Protein 7.1 g/dL (5.7-8.2) 6.4 g/dL (5.7-8.2) 6.2 g/dL (5.7-8.2) Magnesium Level 2.0 mg/dL (1.6-2.6) 1.8 mg/dL (1.6-2.6) LFT Test 11/06/24 16:51 11/06/24 22:32 11/07/24 10:07 Alanine Aminotransferase (ALT) 29 U/L (7-40) 22 U/L (7-40) 19 U/L (7-40) Alkaline Phosphatase 127 U/L (46-116) H 111 U/L (46-116) 106 U/L (46-116) Aspartate Amino Transferase (AST) 17 U/L (13-40) 16 U/L (13-40) 17 U/L (13-40) Total Bilirubin 1.1 mg/dL (0.2-1.0) H 0.8 mg/dL (0.2-1.0) 0.8 mg/dL (0.2-1.0) Urinalysis Test 11/06/24 16:39 Urine Color Light-orange (Yellow) Urine Clarity Ex.turbid (Clear) Urine pH 6.0 (5.0-9.0) Urine Specific [place] 1.019 (1.001-1.035) Urine Protein 2+ (Negative) H Urine Ketones Negative (Negative) Urine Blood 2+ /uL (Negative) H Urine Nitrite 1+ (Negative) H Urine Bilirubin Negative (Negative) Urine Urobilinogen 2 mg/dL (Negative) H Urine Leukocyte Esterase 3+ /uL (Negative) Urine RBC 13 /hpf (0 - 4) Urine WBC Clumps Present /hpf (None Seen) Urine Microscopic WBC 807 /HPF (0-5) H Urine Squamous Epithelial Cells Few /hpf (<5) Urine Bacteria Few /hpf (None Seen) H Urine Yeast (Budding) Few /hpf (None Seen) Urine Glucose Normal mg/dL (Normal) Microbiology Microbiology Date/Time Source Procedure Growth Status 11/06/24 21:00 Voided Urine Urine Culture - Preliminary Resulted Labs and/or images reviewed: Labs reviewed by me, Image(s) reviewed by me Assessment/Plan Assessment/Plan 29-year-old female with past medical history of kidney stones, depression and past surgical history of appendectomy presented with complaints of flank pain left greater than right. Pt was seen here yesterday and for same complaint and had blood work and UA. Pt was noted be have UTI and antibiotics were ordered but pt states to due long wait time and her history of anxiety, she left prior to treatment. Pt states she now came back to the ED due to severe 10/ 10 bilateral sided flank pain and generalized weakness, nausea, vomiting, dysuria and fever. Patient seen and examined at bedside. Mentioned complaints of back pain, still has fever 11/07: Patient presenting with flank pain left. CT showing evidence of pyelo nephritis. She has leukocytosis as well. Left shift neutrophilia. Patient was started on antibiotics, UA concerning for infection. Pending urine culture. Continue IV antibiotics. # sepsis due to pyelonephritis IV fluid Antibiotics Blood culture Lactic acid # pyelonephritis IV fluid Antibiotics Blood culture Lactic acid CT shows Extensive right and minimal left perinephric inflammation with no stone or hydroureteronephrosis. Please correlate with urine analysis and laboratory values for pyonephritis. Other possibilities are not excluded on a noncontrast CT exam. # PEMA due to VMN IV fluids Monitor #Diffuse hepatic steatosis Seen on CT Monitor with LFTs #hypokalemia -Oral potassium effervescent -Monitor BMP # hyponatremia likely due to hypovolemia due to sepsis Monitor # history of kidney stones # status post Cholecystectomy. Code status, full code Plan discussed with: Patient My Orders Orders - BELLA FUENTES MD Procedure Category Date Status Time Acetaminophen Tablet PHA 11/07/24 In Process (Tylenol Tablet) 13:30 Hydrocodone-Acet PHA 11/07/24 In Process 5/325mg Tab ([place] 13:30 Morphine Sulfate PHA 11/07/24 In Process Injection 13:30 Lactated Ringer's PHA 11/07/24 In Process 13:30 Date of Service: Nov 07, 2024 Billing Provider: BELLA FUENTES MD Common Visit Codes: [id number] INP/OBS CARE(HIGH) BELLA FUENTES MD Nov 07, 2024 15:58
[2024-11-07] MEDS: ACETAMINOPHEN 325 MG TAB PO PRN (18:47)
[2024-11-07 21:30] VITALS: PULSE 96; RESP 19; O2SAT 94
[2024-11-08] VITALS (10 sets, daily range): BP systolic 98–114; BP diastolic 61–75; PULSE 73–98; RESP 16–23; TEMP 97.4–101.6; O2SAT 93–100
[2024-11-08 07:31] LABS: Hematocrit 32.6 % (36.0-46.0); Hemoglobin 11.1 g/dL (12.2-16.2); Mean Corpuscular Hemoglobin 27.4 pg (28.0-32.0); Mean Corpuscular Volume 80.7 fL (80.0-100.0); Nucleated Red Blood Cells % 0.1 %
[2024-11-08] MEDS ORDERED: ACETAMINOPHEN 325 MG TAB PO PRN (07:45)
[2024-11-08 07:57] LABS: Alanine Aminotransferase 21 U/L (7-40); Alkaline Phosphatase 107 U/L (46-116); Anion Gap 10 (5-15); Glucose 102 mg/dL (74-106); Total Protein 6.3 g/dL (5.7-8.2)
[2024-11-08 07:58] LABS: Albumin 3.3 g/dL (3.2-4.8); Bilirubin, Total 0.5 mg/dL (0.2-1.0)
[2024-11-08 08:00] LABS: BUN/Creatinine Ratio 5.6 (10.0-20.0); Blood Urea Nitrogen < 5 mg/dL (9-23); Calcium 8.5 mg/dL (8.7-10.4); Carbon Dioxide 20 mmol/L (20-31); Chloride 101 mmol/L (98-107); Potassium 3.6 mmol/L (3.5-5.1); Sodium 131 mmol/L (136-145)
[2024-11-08] MEDS: PNEUMOCOCCAL VACC POLYS 25 MCG/0.5 ML VIAL IM ONE (10:00)
[2024-11-08 10:51] LABS: Hepatitis B Surface Antigen Negative (Negative)
[2024-11-08 11:06] LABS: Hepatitis C Antibody Negative (Negative)
--- NOTE | 2024-11-08 11:50 | DVHPN2 ---
Reviewed: H&P Changes from previous H/P or p: No Changes General: Per HPI Objective Vitals Vital Signs Date Time Temp Pulse Resp B/P (MAP) Pulse Ox O2 Delivery O2 Flow Rate FiO2 11/08/24 09:00 98.6 80 16 104/68 (80) 97 98.6 11/08/24 03:47 Room Air* 0 21 Intake/Output Intake and Output 11/08/24 07:00 Intake Total 0 ml Balance 0 ml Intake Oral 0 ml Exam General Appearance: Alert, Oriented X3, Cooperative, No acute distress HEENT: EOMI Respiratory: Clear to auscultation, Normal air movement Cardiovascular: Regular rate, Normal S1, Normal S2 Abdominal: Soft, Tenderness (Bilateral flank and CVA tenderness), Normal bowel sounds Extremities: No cyanosis, No edema, Normal pulses, No tenderness/swelling Skin: No rashes, No breakdown Neuro: Normal speech and tone Medications Current Medications Medications Dose Ordered Sig/Shannon Route Start Time Stop Time Status Last Admin Dose Admin Piperacillin Sod/ Tazobactam Sod 100 ml @ 25 mls/hr Q6HR IV 11/07/24 00:00 UNV Piperacillin Sod/ Tazobactam Sod 100 ml @ 25 mls/hr Q8HR IV 11/06/24 22:17 11/08/24 05:00 25 MLS/HR Acetaminophen/ Hydrocodone Bitart 1 tab Q6HPRN PRN PO 11/07/24 13:30 11/08/24 04:03 1 TAB Morphine Sulfate 2 mg Q6HPRN PRN IV 11/07/24 13:30 Lactated Ringer's 1,000 ml @ 75 mls/hr [id number] IV 11/07/24 13:30 11/08/24 04:17 75 MLS/HR Acetaminophen 650 mg Q6HP PRN PO 11/08/24 07:45 Laboratory Results Laboratory Tests 11/08/24 05:55 Chemistry Test 11/08/24 05:55 Albumin 3.3 g/dL (3.2-4.8) Calcium Level 8.5 mg/dL (8.7-10.4) L Total Protein 6.3 g/dL (5.7-8.2) LFT Test 11/08/24 05:55 Alanine Aminotransferase (ALT) 21 U/L (7-40) Alkaline Phosphatase 107 U/L (46-116) Aspartate Amino Transferase (AST) 24 U/L (13-40) Total Bilirubin 0.5 mg/dL (0.2-1.0) Urinalysis Test 11/06/24 16:39 Urine Color Light-orange (Yellow) Urine Clarity Ex.turbid (Clear) Urine pH 6.0 (5.0-9.0) Urine Specific [place] 1.019 (1.001-1.035) Urine Protein 2+ (Negative) H Urine Ketones Negative (Negative) Urine Blood 2+ /uL (Negative) H Urine Nitrite 1+ (Negative) H Urine Bilirubin Negative (Negative) Urine Urobilinogen 2 mg/dL (Negative) H Urine Leukocyte Esterase 3+ /uL (Negative) Urine RBC 13 /hpf (0 - 4) Urine WBC Clumps Present /hpf (None Seen) Urine Microscopic WBC 807 /HPF (0-5) H Urine Squamous Epithelial Cells Few /hpf (<5) Urine Bacteria Few /hpf (None Seen) H Urine Yeast (Budding) Few /hpf (None Seen) Urine Glucose Normal mg/dL (Normal) Microbiology Microbiology Date/Time Source Procedure Growth Status 11/07/24 09:26 Nose MRSA Screen - Final Complete 11/06/24 21:00 Voided Urine Urine Culture - Preliminary Resulted 11/06/24 17:05 Blood Blood Culture - Preliminary NO GROWTH AFTER 24 HOURS OF INCUBATION. Resulted Labs and/or images reviewed: Labs reviewed by me, Image(s) reviewed by me Assessment/Plan Assessment/Plan 29-year-old female with past medical history of kidney stones, depression and past surgical history of appendectomy presented with complaints of flank pain left greater than right. Pt was seen here yesterday and for same complaint and had blood work and UA. Pt was noted be have UTI and antibiotics were ordered but pt states to due long wait time and her history of anxiety, she left prior to treatment. Pt states she now came back to the ED due to severe 10/ 10 bilateral sided flank pain and generalized weakness, nausea, vomiting, dysuria and fever. Patient seen and examined at bedside. Mentioned complaints of back pain, still has fever 11/07: Patient presenting with flank pain left. CT showing evidence of pyelo nephritis. She has leukocytosis as well. Left shift neutrophilia. Patient was started on antibiotics, UA concerning for infection. Pending urine culture. Continue IV antibiotics. 11/08: Patient does Iv methamphetamines, having fevers again. He had to go up on antibiotics continue Zosyn. Repeat blood cultures today. adding vanc. # sepsis due to pyelonephritis IV fluid Antibiotics Blood culture Lactic acid # pyelonephritis IV fluid Antibiotics Blood culture Lactic acid CT shows Extensive right and minimal left perinephric inflammation with no stone or hydroureteronephrosis. Please correlate with urine analysis and laboratory values for pyonephritis. Other possibilities are not excluded on a noncontrast CT exam. # PEMA due to VMN IV fluids Monitor #Diffuse hepatic steatosis Seen on CT Monitor with LFTs #hypokalemia -Oral potassium effervescent -Monitor BMP # hyponatremia likely due to hypovolemia due to sepsis Monitor # history of kidney stones # status post Cholecystectomy. Code status, full code Plan discussed with: Patient My Orders Orders - BELLA FUENTES MD Procedure Category Date Status Time Hydrocodone-Acet PHA 11/07/24 In Process 5/325mg Tab ([place] 13:30 Morphine Sulfate PHA 11/07/24 In Process Injection 13:30 Lactated Ringer's PHA 11/07/24 In Process 13:30 Date of Service: Nov 08, 2024 Billing Provider: BELLA FUENTES MD Common Visit Codes: [id number] INP/OBS CARE(HIGH) BELLA FUENTES MD Nov 08, 2024 11:50
[2024-11-08] MEDS ORDERED: VANCOMYCIN PER PHARMACY 0 MG IV SCH (14:00)
[2024-11-08] MEDS: DAPTOmycin 400 MG in SODIUM CHL 0.9% 50 ML IV SCH (21:00)
[2024-11-08] MEDS: MORPHINE SULFATE INJ 2 MG/ml SYRG IV PRN (22:40)
[2024-11-09] VITALS (8 sets, daily range): BP systolic 91–141; BP diastolic 55–86; PULSE 64–108; RESP 16–18; TEMP 97–98.3; O2SAT 91–100
--- NOTE | 2024-11-09 11:23 | DVHPN2 ---
Reviewed: H&P Changes from previous H/P or p: No Changes General: Per HPI Objective Vitals Vital Signs Date Time Temp Pulse Resp B/P (MAP) Pulse Ox O2 Delivery O2 Flow Rate FiO2 11/09/24 09:00 98.0 108 18 114/72 (86) 100 98.0 11/09/24 03:47 Room Air* 0 21 Intake/Output Intake and Output 11/09/24 07:00 Intake Total 1725 ml Balance 1725 ml Intake Oral 600 ml IV Total 1125 ml Tube Feeding 0 ml # Voids 7 # Bowel Movements 3 Exam General Appearance: Alert, Oriented X3, Cooperative, No acute distress HEENT: EOMI Respiratory: Clear to auscultation, Normal air movement Cardiovascular: Regular rate, Normal S1, Normal S2 Abdominal: Soft, Tenderness (Bilateral flank and CVA tenderness), Normal bowel sounds Extremities: No cyanosis, No edema, Normal pulses, No tenderness/swelling Skin: No rashes, No breakdown Neuro: Normal speech and tone Medications Current Medications Medications Dose Ordered Sig/Shannon Route Start Time Stop Time Status Last Admin Dose Admin Piperacillin Sod/ Tazobactam Sod 100 ml @ 25 mls/hr Q6HR IV 11/07/24 00:00 UNV Piperacillin Sod/ Tazobactam Sod 100 ml @ 25 mls/hr Q8HR IV 11/06/24 22:17 11/09/24 05:28 25 MLS/HR Acetaminophen/ Hydrocodone Bitart 1 tab Q6HPRN PRN PO 11/07/24 13:30 11/08/24 17:57 1 TAB Morphine Sulfate 2 mg Q6HPRN PRN IV 11/07/24 13:30 11/08/24 22:40 2 MG Lactated Ringer's 1,000 ml @ 75 mls/hr [id number] IV 11/07/24 13:30 11/08/24 17:43 75 MLS/HR Acetaminophen 650 mg Q6HP PRN PO 11/08/24 07:45 Daptomycin 400 mg/ Sodium Chloride 50 ml @ 100 mls/hr DAILY@1800 IV 11/08/24 18:00 11/08/24 21:00 100 MLS/HR Clindamycin Phosphate 50 ml @ 50 mls/hr Q8HR IV 11/09/24 10:15 UNV Laboratory Results Laboratory Tests 11/08/24 05:55 Urinalysis Test 11/06/24 16:39 Urine Color Light-orange (Yellow) Urine Clarity Ex.turbid (Clear) Urine pH 6.0 (5.0-9.0) Urine Specific [place] 1.019 (1.001-1.035) Urine Protein 2+ (Negative) H Urine Ketones Negative (Negative) Urine Blood 2+ /uL (Negative) H Urine Nitrite 1+ (Negative) H Urine Bilirubin Negative (Negative) Urine Urobilinogen 2 mg/dL (Negative) H Urine Leukocyte Esterase 3+ /uL (Negative) Urine RBC 13 /hpf (0 - 4) Urine WBC Clumps Present /hpf (None Seen) Urine Microscopic WBC 807 /HPF (0-5) H Urine Squamous Epithelial Cells Few /hpf (<5) Urine Bacteria Few /hpf (None Seen) H Urine Yeast (Budding) Few /hpf (None Seen) Urine Glucose Normal mg/dL (Normal) Microbiology Microbiology Date/Time Source Procedure Growth Status 11/07/24 09:26 Nose MRSA Screen - Final Complete 11/06/24 21:00 Voided Urine Urine Culture - Final Complete 11/06/24 17:05 Blood Blood Culture - Preliminary NO GROWTH AFTER 48 HOURS OF INCUBATION. Resulted Labs and/or images reviewed: Labs reviewed by me, Image(s) reviewed by me Assessment/Plan Assessment/Plan 29-year-old female with past medical history of kidney stones, depression and past surgical history of appendectomy presented with complaints of flank pain left greater than right. Pt was seen here yesterday and for same complaint and had blood work and UA. Pt was noted be have UTI and antibiotics were ordered but pt states to due long wait time and her history of anxiety, she left prior to treatment. Pt states she now came back to the ED due to severe 10/ 10 bilateral sided flank pain and generalized weakness, nausea, vomiting, dysuria and fever. Patient seen and examined at bedside. Mentioned complaints of back pain, still has fever 11/07: Patient presenting with flank pain left. CT showing evidence of pyelo nephritis. She has leukocytosis as well. Left shift neutrophilia. Patient was started on antibiotics, UA concerning for infection. Pending urine culture. Continue IV antibiotics. 11/08: Patient does Iv methamphetamines, having fevers again. He had to go up on antibiotics continue Zosyn. Repeat blood cultures today. adding vanc. 11/09: Patient is still feeling very run down. Increasing antibiotics to daptomycin and Zosyn. We will get echo today. Patient has track joya arms bilateral. Patient endorses that she uses clean needles , does not share needles, using cotton to prepare needles. cotton fever very possible. # sepsis due to pyelonephritis IV fluid Antibiotics Blood culture Lactic acid # pyelonephritis IV fluid Antibiotics Blood culture Lactic acid CT shows Extensive right and minimal left perinephric inflammation with no stone or hydroureteronephrosis. Please correlate with urine analysis and laboratory values for pyonephritis. Other possibilities are not excluded on a noncontrast CT exam. # PEMA due to VMN IV fluids Monitor #Diffuse hepatic steatosis Seen on CT Monitor with LFTs #hypokalemia -Oral potassium effervescent -Monitor BMP # hyponatremia likely due to hypovolemia due to sepsis Monitor # history of kidney stones # status post Cholecystectomy. Code status, full code Plan discussed with: Patient My Orders Orders - BELLA FUENTES MD Procedure Category Date Status Time Blood Culture BRENDA 11/08/24 In Process 11:49 Daptomycin (Cubicin) PHA 11/08/24 In Process 18:00 Clindamycin 300mg Iv PHA 11/09/24 Logged (Cleocin Iv) 10:15 Soft Diet DIET 11/09/24 Transmitted Lunch Date of Service: Nov 09, 2024 Billing Provider: BELLA FUENTES MD Common Visit Codes: [id number] INP/OBS CARE(HIGH) BELLA FUENTES MD Nov 09, 2024 11:23
[2024-11-09] MEDS: CLINDAMYCIN 300MG IV 50 ML IV SCH (13:38)
[2024-11-10] VITALS (8 sets, daily range): BP systolic 104–117; BP diastolic 69–83; PULSE 72–90; RESP 17–20; TEMP 97.6–98.8; O2SAT 95–100
--- NOTE | 2024-11-10 01:09 | DVHSR ---
APPROVED REPORT EXAM: Two-dimensional and M-mode echocardiogram with Doppler and color Doppler. Blood Pressure: 111/75 mmHg INDICATION HX IVDU R/O Valve Veg RISK FACTORS Height: 5' 4", Weight: 184 DIMENSIONS LVDd4.3 (3.8-5.7cm)LA (2D)3.5 (1.9-4.0cm)Aortic Root3.3 (2.0-3.7cm) LVDs3.3 (2.5-4.0cm)LA (MM) (1.9-4.0cm)Aortic Cusp Exc1.4 (1.5-2.0cm) EF (%) 50.0 (55-70%)Rt. Atrium3.6 (1.9-4.0cm)Asc. 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
[2024-11-10 06:46] LABS: Hematocrit 34.5 % (36.0-46.0); Hemoglobin 11.4 g/dL (12.2-16.2); Mean Corpuscular Hemoglobin 26.8 pg (28.0-32.0); Mean Corpuscular Volume 80.8 fL (80.0-100.0); Nucleated Red Blood Cells % 0.0 %
[2024-11-10 07:06] LABS: Alanine Aminotransferase 19 U/L (7-40); Albumin 3.2 g/dL (3.2-4.8); Anion Gap 11 (5-15); Calcium 8.7 mg/dL (8.7-10.4); Carbon Dioxide 22 mmol/L (20-31); Chloride 103 mmol/L (98-107); Glucose 89 mg/dL (74-106); Potassium 4.3 mmol/L (3.5-5.1); Total Protein 6.3 g/dL (5.7-8.2)
[2024-11-10 07:07] LABS: Bilirubin, Total 0.3 mg/dL (0.2-1.0)
[2024-11-10 07:08] LABS: Alkaline Phosphatase 125 U/L (46-116); BUN/Creatinine Ratio 7.0 (10.0-20.0); Blood Urea Nitrogen < 5 mg/dL (9-23); Sodium 136 mmol/L (136-145)
--- NOTE | 2024-11-10 15:51 | DVHPN2 ---
Reviewed: H&P Changes from previous H/P or p: No Changes General: Per HPI Objective Vitals Vital Signs Date Time Temp Pulse Resp B/P (MAP) Pulse Ox O2 Delivery O2 Flow Rate FiO2 11/10/24 12:56 98.3 77 17 115/76 (89) 99 98.3 11/10/24 08:00 Room Air* 0 21 Intake/Output Intake and Output 11/10/24 07:00 Intake Total 2750 ml Balance 2750 ml Intake Oral 1500 ml IV Total 1250 ml # Voids 11 # Bowel Movements 2 Exam General Appearance: Alert, Oriented X3, Cooperative, No acute distress HEENT: EOMI Respiratory: Clear to auscultation, Normal air movement Cardiovascular: Regular rate, Normal S1, Normal S2 Abdominal: Soft, Tenderness (Bilateral flank and CVA tenderness), Normal bowel sounds Extremities: No cyanosis, No edema, Normal pulses, No tenderness/swelling Skin: No rashes, No breakdown Neuro: Normal speech and tone Medications Current Medications Medications Dose Ordered Sig/Shannon Route Start Time Stop Time Status Last Admin Dose Admin Piperacillin Sod/ Tazobactam Sod 100 ml @ 25 mls/hr Q6HR IV 11/07/24 00:00 UNV Piperacillin Sod/ Tazobactam Sod 100 ml @ 25 mls/hr Q8HR IV 11/06/24 22:17 11/10/24 07:49 25 MLS/HR Acetaminophen/ Hydrocodone Bitart 1 tab Q6HPRN PRN PO 11/07/24 13:30 11/08/24 17:57 1 TAB Morphine Sulfate 2 mg Q6HPRN PRN IV 11/07/24 13:30 11/09/24 22:05 2 MG Lactated Ringer's 1,000 ml @ 75 mls/hr [id number] IV 11/07/24 13:30 11/10/24 08:10 75 MLS/HR Acetaminophen 650 mg Q6HP PRN PO 11/08/24 07:45 Daptomycin 400 mg/ Sodium Chloride 50 ml @ 100 mls/hr DAILY@1800 IV 11/08/24 18:00 11/09/24 18:09 100 MLS/HR Laboratory Results Laboratory Tests 11/10/24 05:57 Chemistry Test 11/10/24 05:57 Albumin 3.2 g/dL (3.2-4.8) Calcium Level 8.7 mg/dL (8.7-10.4) Total Protein 6.3 g/dL (5.7-8.2) LFT Test 11/10/24 05:57 Alanine Aminotransferase (ALT) 19 U/L (7-40) Alkaline Phosphatase 125 U/L (46-116) H Aspartate Amino Transferase (AST) 22 U/L (13-40) Total Bilirubin 0.3 mg/dL (0.2-1.0) Urinalysis Test 11/06/24 16:39 Urine Color Light-orange (Yellow) Urine Clarity Ex.turbid (Clear) Urine pH 6.0 (5.0-9.0) Urine Specific [place] 1.019 (1.001-1.035) Urine Protein 2+ (Negative) H Urine Ketones Negative (Negative) Urine Blood 2+ /uL (Negative) H Urine Nitrite 1+ (Negative) H Urine Bilirubin Negative (Negative) Urine Urobilinogen 2 mg/dL (Negative) H Urine Leukocyte Esterase 3+ /uL (Negative) Urine RBC 13 /hpf (0 - 4) Urine WBC Clumps Present /hpf (None Seen) Urine Microscopic WBC 807 /HPF (0-5) H Urine Squamous Epithelial Cells Few /hpf (<5) Urine Bacteria Few /hpf (None Seen) H Urine Yeast (Budding) Few /hpf (None Seen) Urine Glucose Normal mg/dL (Normal) Microbiology Microbiology Date/Time Source Procedure Growth Status 11/09/24 14:44 Blood Blood Culture - Preliminary NO GROWTH AFTER 24 HOURS OF INCUBATION. Resulted 11/07/24 09:26 Nose MRSA Screen - Final Complete 11/06/24 21:00 Voided Urine Urine Culture - Final Complete Labs and/or images reviewed: Labs reviewed by me, Image(s) reviewed by me Assessment/Plan Assessment/Plan 29-year-old female with past medical history of kidney stones, depression and past surgical history of appendectomy presented with complaints of flank pain left greater than right. Pt was seen here yesterday and for same complaint and had blood work and UA. Pt was noted be have UTI and antibiotics were ordered but pt states to due long wait time and her history of anxiety, she left prior to treatment. Pt states she now came back to the ED due to severe 10/ 10 bilateral sided flank pain and generalized weakness, nausea, vomiting, dysuria and fever. Patient seen and examined at bedside. Mentioned complaints of back pain, still has fever 11/07: Patient presenting with flank pain left. CT showing evidence of pyelo nephritis. She has leukocytosis as well. Left shift neutrophilia. Patient was started on antibiotics, UA concerning for infection. Pending urine culture. Continue IV antibiotics. 11/08: Patient does Iv methamphetamines, having fevers again. He had to go up on antibiotics continue Zosyn. Repeat blood cultures today. adding vanc. 11/09: Patient is still feeling very run down. Increasing antibiotics to daptomycin and Zosyn. We will get echo today. Patient has track joya arms bilateral. Patient endorses that she uses clean needles , does not share needles, using cotton to prepare needles. cotton fever very possible. 11/10: Patient is still feeling run down, no further fevers. Patient is on daptomycin and Zosyn which we will continue. Echocardiogram is negative no vegetations. We will cultures have been negative x4. Bacteremia ruled out, differential remains pyelonephritis and/or cotton fever. I had discussion about IV drug use with patient today, it appears patient is still has poor insight and likely going to be poor prognosis. We will continue IV antibiotics, when patient's starts to improve we will deescalate antibiotics and then think of plan for outpatient antibiotics. Likely consider deescalation of antibiotics tomorrow. And if continues do well possible discharge Wednesday. # sepsis due to pyelonephritis IV fluid Antibiotics Blood culture Lactic acid # pyelonephritis IV fluid Antibiotics Blood culture Lactic acid CT shows Extensive right and minimal left perinephric inflammation with no stone or hydroureteronephrosis. Please correlate with urine analysis and laboratory values for pyonephritis. Other possibilities are not excluded on a noncontrast CT exam. # PEMA due to VMN IV fluids Monitor #Diffuse hepatic steatosis Seen on CT Monitor with LFTs #hypokalemia -Oral potassium effervescent -Monitor BMP # hyponatremia likely due to hypovolemia due to sepsis Monitor # history of kidney stones # status post Cholecystectomy. Code status, full code Plan discussed with: Patient Date of Service: Nov 10, 2024 Billing Provider: BELLA FUENTES MD Common Visit Codes: [id number] INP/OBS CARE(HIGH) BELLA FUENTES MD Nov 10, 2024 15:51
[2024-11-11 01:00] VITALS: BP 110/74; PULSE 70; RESP 17; TEMP 97.8; O2SAT 97
[2024-11-11 05:00] VITALS: BP 109/74; PULSE 68; RESP 18; TEMP 97.8; O2SAT 98
[2024-11-11 08:00] VITALS: PULSE 68; PULSE 80; RESP 18; O2SAT 95
[2024-11-11 09:00] VITALS: BP 108/72; PULSE 73; RESP 20; TEMP 97.6; O2SAT 97
== END 2024-11-11 15:30 | disposition left against medical advice (07) | DRG 871 ==
LOC: ER 15:21 → OVERFLOW 22:08 → TELE-WESTW 11-07 22:50
PROVIDERS: ADMIT Student in an Organized Health Care Education/Training Program; ATTEND Student in an Organized Health Care Education/Training Program
DX: A41.9 Sepsis, unspecified organism (principal); N17.0 Acute kidney failure with tubular necrosis; N12 Tubulo-interstitial nephritis, not specified as acute or chronic; E87.1 Hypo-osmolality and hyponatremia; E87.6 Hypokalemia; F17.210 Nicotine dependence, cigarettes, uncomplicated; F31.9 Bipolar disorder, unspecified; K76.0 Fatty (change of) liver, not elsewhere classified; E86.1 Hypovolemia; F41.9 Anxiety disorder, unspecified; F43.10 Post-traumatic stress disorder, unspecified; Z87.442 Personal history of urinary calculi; Z90.49 Acquired absence of other specified parts of digestive tract
CPT/HCPCS: 36415; 74176; 80053; 81001; 83605; 83735; 85025; 86703; 86803; 87040; 87081; 87086; 87340; 93306; 96365; 96375; G0378; J2405; J2543; J3480; J3490